=== PATIENT | male | born 1975 | race Caucasian/White ===

== ENCOUNTER 2017-10-27 11:33 | Emergency (ER) | payer MEDICAID ==
[2017-10-27 11:37] VITALS: BMI 45.9
[2017-10-27 12:10] LABS: BASOPHILS % (AUTO) 0.5 % (0.2-1.0); EOSINOPHILS # (AUTO) 0.2 x10^3/uL (0.0-0.2); EOSINOPHILS % (AUTO) 2.6 % (0.9-2.9); HEMATOCRIT 43.4 % (42.0-54.0); HEMOGLOBIN 15.4 g/dL (13.5-18.0); LYMPHOCYTES # (AUTO) 1.9 X10^3/uL (1.3-2.9); LYMPHOCYTES % (AUTO) 28.8 % (21.0-51.0); MEAN CORPUSCULAR HEMOGLOBIN 34.7 pg (27.0-34.0); MEAN CORPUSCULAR HGB CONC 35.4 g/dL (33.0-35.0); MEAN CORPUSCULAR VOLUME 98.1 fL (80.0-100.0); MEAN PLATELET VOLUME 6.4 fL (7.4-11.0); MONOCYTES # (AUTO) 0.9 x10^3/uL (0.3-0.8); MONOCYTES % (AUTO) 13.1 % (0.0-13.0); NEUTROPHILS # (AUTO) 3.7 x10^3/uL (2.2-4.8); PLATELET COUNT 231 X10^3/uL (150.0-450.0); RED BLOOD COUNT 4.43 X10^6/uL (4.7-6.0); WHITE BLOOD COUNT 6.6 X10^3/uL (3.6-10.0)
[2017-10-27 12:27] LABS: BLOOD UREA NITROGEN 11 mg/dL (7-18); CALCIUM 8.8 mg/dL (8.5-10.1); CARBON DIOXIDE 29.7 mmol/L (21-32); CHLORIDE 103 mmol/L (98-107); CREATININE 0.82 mg/dL (0.70-1.30); SODIUM 139 mmol/L (136-145); TROPONIN I < 0.02 ng/mL (0-1.5); eGFR BLACK RACES > 60 (>60); eGFR NON BLACK RACES > 60 (>60)
[2017-10-27 12:32] LABS: ALANINE AMINOTRANSFERASE 66 Units/L (12-78); ALBUMIN 3.8 g/dL (3.4-5.0); ALKALINE PHOSPHATASE 95 Units/L (46-116); ASPARTATE AMINO TRANSFERASE 40 Units/L (15-37); CKMB % 0.9 % (<4); CREATINE KINASE 155 Units/L (39-308); CREATINE KINASE MB 1.4 ng/mL (0-4.0); TOTAL PROTEIN 7.8 g/dL (6.4-8.2)
--- NOTE | 2017-10-27 12:35 | DR.GENAD ---
HPI - PCP Primary Care Physician: NFD - Complaint/Symptoms Chief Complaint Doctors Comments: chest tightness started this morning a few hours ago, DONALD started yesterday, has partially resolved Chief Complaint:: PT. C/O CHEST TIGHTNESS, HEADACHE, AND HIGH BLOOD PRESSURE. 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 PT. HAS NO HX. OF HTN. - Nurses notes reviewed Nurses Notes Review: Yes - Source History Provided: Patient - Mode of Arrival Mode of Arrival: Ambulatory - Timing Onset of Chief Complaint: 10/26/17 - Severity Severity: Moderate PMH - PMH Past Medical History: No (no sig PMH) Past Surgical History: Yes Surgical History: Tonsillectomy, Other Past Surgical History Comment: HERNIA REPAIR - Family History History of Family Medical Conditions: No - Social History Does patient currently use any type of tobacco product: Yes Have you used tobacco products in the last 12 months: Yes Type of Tobacco Use: Cigarettes Does any household member use tobacco: No Alcohol Use: Occasionally Do you use any recreational Drugs:: No Lives With: Spouse Lives Where: Home - infectious screening In the last 2 months have you had wt loss of >10#?: NO Have you had fever, night sweats or hemotysis?: No Have you traveled outside the country in the last 6 months?: No Isolation: Standard ROS - Review of Systems Constitutional: negative: Diaphoresis, Fever, Weakness, Fatigue Eyes: No Symptoms Reported ENTM: No Symptoms Reported Respiratoy: No Symptoms Reported, Non-Productive Cough Cardiovascular: Chest Pain. negative: Edema Gastrointestinal/Abdominal: No Symptoms Reported Genitourinary: No Symptoms Reported Neurological: No Symptoms Reported, Headache Musculoskeletal: No Symptoms Reported Hematologic/Lymphatic: No Symptoms Reported Endocrine: No Symptoms Reported Psychiatric: No Symptoms Reported All Other Systems: Reviewed and Negative PE - Vital Signs Vitals: Temperature 98.2 F Pulse Rate [Apical] 66 Pulse Rate 73 Respiratory Rate 18 Blood Pressure [Left Arm] 137/77 Blood Pressure 138/83 O2 Sat by Pulse Oximetry 96 - General Limitations: No Limitations General Appearance: Alert, In No Apparent Distress, Obese. negative: Appears Intoxicated, Anxious, Lethargic, Obtunded, In Distress, Cachectic - Head Head Exam: Normal Inspection, Normocephalic - Eyes Eye exam: Normal Appearance - ENT ENT Exam: Normal Exam Throat Exam: Normal Inspection - Neck Neck Exam: Normal Inspection, Full ROM, Trachea Midline - Chest Chest Inspection: Normal Inspection, Symmetric Chest Wall Rise. negative: Tenderness - Respiratory Respiratory Exam: Normal Lung Sounds Bilat Respiratory Exam: Bilateral Clear to Auscultation - Cardiovascular Cardiovascular Exam: Regular Rate, Normal Rhythm. negative: Systolic Murmur, Diastolic Murmur - Abdominal Exam Abdominal Exam: Normal Inspection, Normal Bowel Sounds, Soft - Extremities Extremities Exam: Normal Inspection, Full ROM - Back Back Exam: Normal Inspection. negative: Full ROM - Neurologic Neurological Exam: Alert, Oriented X3 - Skin Skin Exam: Warm, Dry ROR - Labs Reviewed Laboratory Results Reviewed?: Yes (cardiacs all ok) Result Diagrams: 10/27/17 12:00 10/27/17 12:00 Laboratory: WBC 6.6 X10^3/uL (3.6-10.0) 10/27/17 12:00 RBC 4.43 X10^6/uL (4.7-6.0) L 10/27/17 12:00 Hgb 15.4 g/dL (13.5-18.0) 10/27/17 12:00 Hct 43.4 % (42.0-54.0) 10/27/17 12:00 MCV 98.1 fL (80.0-100.0) 10/27/17 12:00 MCH 34.7 pg (27.0-34.0) H 10/27/17 12:00 MCHC 35.4 g/dL (33.0-35.0) H 10/27/17 12:00 RDW 14.0 % (11.6-16.5) 10/27/17 12:00 Plt Count 231 X10^3/uL (150.0-450.0) 10/27/17 12:00 MPV 6.4 fL (7.4-11.0) L 10/27/17 12:00 Neut % 55.0 % (42.0-75.0) 10/27/17 12:00 Lymph % 28.8 % (21.0-51.0) 10/27/17 12:00 Mckinley % 13.1 % (0.0-13.0) H 10/27/17 12:00 Eos % 2.6 % (0.9-2.9) 10/27/17 12:00 Baso % 0.5 % (0.2-1.0) 10/27/17 12:00 Neut # 3.7 x10^3/uL (2.2-4.8) 10/27/17 12:00 Lymph # 1.9 X10^3/uL (1.3-2.9) 10/27/17 12:00 Mckinley # 0.9 x10^3/uL (0.3-0.8) H 10/27/17 12:00 Eos # 0.2 x10^3/uL (0.0-0.2) 10/27/17 12:00 Baso # 0.0 X10^3/uL (0.0-0.1) 10/27/17 12:00 Absolute Nucleated RBC 0.0 /100WBC 10/27/17 12:00 INR Target Range - 10/27/17 12:00 INR 0.90 (0.8-1.3) 10/27/17 12:00 PTT 27.4 SECONDS (22.9-36.5) 10/27/17 12:00 PTT Comment - 10/27/17 12:00 Sodium 139 mmol/L (136-145) 10/27/17 12:00 Corrected Sodium TNP 10/27/17 12:00 Potassium 4.0 mmol/L (3.5-5.1) 10/27/17 12:00 Chloride 103 mmol/L (98-107) 10/27/17 12:00 Carbon Dioxide 29.7 mmol/L (21-32) 10/27/17 12:00 BUN 11 mg/dL (7-18) 10/27/17 12:00 Creatinine 0.82 mg/dL (0.70-1.30) 10/27/17 12:00 Est GFR (MDRD) Af Amer > 60 (>60) 10/27/17 12:00 Est GFR (MDRD) Non-Af > 60 (>60) 10/27/17 12:00 Glucose 82 mg/dL (65-99) 10/27/17 12:00 Calcium 8.8 mg/dL (8.5-10.1) 10/27/17 12:00 Corrected Calcium TNP 10/27/17 12:00 Total Bilirubin 0.40 mg/dL (0.2-1.0) 10/27/17 12:00 AST 40 Units/L (15-37) H 10/27/17 12:00 ALT 66 Units/L (12-78) 10/27/17 12:00 Alkaline Phosphatase 95 Units/L (46-116) 10/27/17 12:00 Creatine Kinase 155 Units/L (39-308) 10/27/17 12:00 CK-MB (CK-2) 1.4 ng/mL (0-4.0) 10/27/17 12:00 CK/CKMB % Calc 0.9 % (<4) 10/27/17 12:00 Troponin I < 0.02 ng/mL (0-1.5) 10/27/17 12:00 Total Protein 7.8 g/dL (6.4-8.2) 10/27/17 12:00 Albumin 3.8 g/dL (3.4-5.0) 10/27/17 12:00 Globulin 4.0 g/dL (2.5-4.5) 10/27/17 12:00 Albumin/Globulin Ratio 1.0 Ratio (1.1-2.1) L 10/27/17 12:00 - XRAY XRAY Interpreted by: Radiologist XRAY Findings: normal CXR - Diagnosis Discharge Problem: Chest pain not due to acute coronary syndrome, Headache - Discharge Plan Disposition: HOME, SELF-CARE Condition: Stable - Follow ups/Referrals Follow ups/Referrals: NFD,None [Primary Care Provider] - 3 days - Instructions Additional Notes - Additional Notes Additional Notes: nothing acute on EKG. Pt much more interested in headache pain than chest pain. Spoke at length re:OTC meds for DONALD.
--- NOTE | 2017-10-27 12:52 | RAD ---
HISTORY: Chest pain, shortness of breath, and high blood pressure. Study: Portable chest. Comparison: None. Findings: The trachea is midline. The cardiac silhouette is unremarkable. No obvious focal consolidation, ple ural effusion, or pneumothorax.. The bony thorax is unremarkable. IMPRESSION: No acute cardiopulmonary disease. Reported By:
[2017-10-27 13:06] VITALS: BP 137/77
== END 2017-10-27 13:33 | disposition home or self-care (01) ==
LOC: ER 11:45
DX: R07.89 Other chest pain (principal); R51 Headache
CPT/HCPCS: 36415; 71045; 80053; 82550; 82553; 84484; 85025; 85610; 85730; 93005; 93010; 99282; 99283